=== PATIENT | female | born 1955 | race Caucasian/White ===

== ENCOUNTER 2020-04-06 20:25 | Outpatient (REF) | payer OTHER, SELFPAY | END 2020-04-06 20:26 | disposition home or self-care (01) | LOC: NCHCN 20:25 | PROVIDERS: PCP Nurse Practitioner Family; Visit Provider Nurse Practitioner Family | DX: E55.9 Vitamin D deficiency, unspecified (principal); Z00.00 Encounter for general adult medical examination without abnormal findings | CPT/HCPCS: 82306; 83735 ==

== ENCOUNTER 2020-06-12 15:12 | Outpatient (REF) | payer OTHER, SELFPAY ==
[2020-06-12 22:11] LABS: Anion Gap 9.6 mmol/L (3-11); BUN 14 mg/dL (7-18); CO2 28.4 mmol/L (21.0-32.0); Calcium 9.6 mg/dL (8.5-10.1); Chloride 107 mmol/L (98-107); Glucose 98 mg/dL (74-106); Potassium 4.4 mmol/L (3.5-5.1); Sodium 145 mmol/L (136-145)
== END 2020-06-12 15:13 | disposition home or self-care (01) ==
LOC: NCHCN 15:12
PROVIDERS: PCP Nurse Practitioner Family; Visit Provider Nurse Practitioner Family
DX: I10 Essential (primary) hypertension (principal)
CPT/HCPCS: 80048

== ENCOUNTER 2020-06-27 09:00 | Outpatient (REF) | payer OTHER, SELFPAY ==
[2020-06-27 13:27] LABS: Anion Gap 8.2 mmol/L (3-11); BUN 21 mg/dL (7-18); CO2 29.8 mmol/L (21.0-32.0); Calcium 9.2 mg/dL (8.5-10.1); Chloride 105 mmol/L (98-107); Glucose 61 mg/dL (74-106); Potassium 3.9 mmol/L (3.5-5.1); Sodium 143 mmol/L (136-145)
== END 2020-06-27 09:01 | disposition home or self-care (01) ==
LOC: NCHCN 09:00
PROVIDERS: PCP Nurse Practitioner Family; Visit Provider Nurse Practitioner Family
DX: I10 Essential (primary) hypertension (principal)
CPT/HCPCS: 80048

== ENCOUNTER 2021-03-27 11:19 | Outpatient (REF) | payer MEDICARE, SELFPAY ==
[2021-03-27 15:32] LABS: Anion Gap 6.5 mmol/L (3-11); BUN 13 mg/dL (7-18); CO2 29.5 mmol/L (21.0-32.0); CREATININE 0.8 mg/dL (0.55-1.02); Chloride 106 mmol/L (98-107); Glucose 103 mg/dL (74-106); Potassium 4.1 mmol/L (3.5-5.1); Sodium 142 mmol/L (136-145)
== END 2021-03-27 11:20 | disposition home or self-care (01) ==
LOC: NCHCN 11:19
PROVIDERS: PCP Nurse Practitioner Family; Visit Provider Nurse Practitioner Family
DX: I10 Essential (primary) hypertension (principal)
CPT/HCPCS: 80048

== ENCOUNTER 2021-09-04 15:25 | Outpatient (REF) | payer MEDICARE, SELFPAY ==
[2021-09-04 20:59] LABS: Bacteria Many HPF (Negative); C & S Indicated? Yes; Crystals Negative HPF (Negative); Epithelial Cells Few HPF (Negative); Mucus Negative (Negative)
[2021-09-04 21:20] LABS: ALT 23 U/L (14-59); AST 15 U/L (15-37); Albumin 3.9 g/dL (3.4-5.0); Alkaline Phosphatase 72 U/L (46-116); Anion Gap 10.6 mmol/L (3-11); BUN 15 mg/dL (7-18); Bilirubin, Total 0.5 mg/dL (0.2-1.0); CO2 24.4 mmol/L (21.0-32.0); Calcium 9.3 mg/dL (8.5-10.1); Calculated LDL 99 mg/dL (<100); Chloride 106 mmol/L (98-107); Cholesterol 165 mg/dL (<200); Estimated GFR 55.14 (mL/min/1.73m2); Glucose 103 mg/dL (74-106); HDL Cholesterol 52 mg/dL (40-60); Potassium 4.2 mmol/L (3.5-5.1); Sodium 141 mmol/L (136-145); Total Protein 6.9 g/dL (6.4-8.2); Triglyceride 70 mg/dL (<150)
[2021-09-04 22:10] LABS: Vitamin D 25 Total 51.1 ng/mL (30-100)
== END 2021-09-04 15:26 | disposition home or self-care (01) ==
LOC: NCHCN 15:25
PROVIDERS: PCP Nurse Practitioner Family; Visit Provider Nurse Practitioner Family
DX: I10 Essential (primary) hypertension (principal); E55.9 Vitamin D deficiency, unspecified; M85.80 Other specified disorders of bone density and structure, unspecified site; M54.9 Dorsalgia, unspecified
CPT/HCPCS: 80053; 80061; 82306; 87077; 81015; 87086; 87186

== ENCOUNTER 2021-10-01 15:33 | Outpatient (REF) | payer MEDICARE, SELFPAY ==
[2021-10-01 21:07] LABS: Anion Gap 9.4 mmol/L (3-11); BUN 15 mg/dL (7-18); CO2 25.6 mmol/L (21.0-32.0); Calcium 8.9 mg/dL (8.5-10.1); Chloride 104 mmol/L (98-107); Estimated GFR 55.14 (mL/min/1.73m2); Glucose 105 mg/dL (74-106); Potassium 4.3 mmol/L (3.5-5.1); Sodium 139 mmol/L (136-145)
[2021-10-01 21:15] LABS: Hemoglobin A1C 5.3 % (<5.7)
== END 2021-10-01 15:34 | disposition home or self-care (01) ==
LOC: NCHCN 15:33
PROVIDERS: PCP Nurse Practitioner Family; Visit Provider Nurse Practitioner Family
DX: R30.0 Dysuria (principal); I10 Essential (primary) hypertension; Z00.00 Encounter for general adult medical examination without abnormal findings; E66.9 Obesity, unspecified; Z13.1 Encounter for screening for diabetes mellitus
CPT/HCPCS: 80048; 83036; 87086

== ENCOUNTER 2021-10-18 16:02 | Outpatient (REF) | payer MEDICARE, SELFPAY ==
[2021-10-18 16:36] LABS: BUN 13 mg/dL (7-18); CREATININE 0.9 mg/dL (0.55-1.02); Calcium 9.1 mg/dL (8.5-10.1); Chloride 104 mmol/L (98-107); Estimated GFR 69.64 (mL/min/1.73m2); Glucose 102 mg/dL (74-106); Potassium 3.9 mmol/L (3.5-5.1); Sodium 141 mmol/L (136-145)
== END 2021-10-18 16:03 | disposition home or self-care (01) ==
LOC: NCHCN 16:02
PROVIDERS: PCP Nurse Practitioner Family; Visit Provider Nurse Practitioner Family
DX: I10 Essential (primary) hypertension (principal)
CPT/HCPCS: 80048

== ENCOUNTER 2021-11-23 16:36 | Outpatient (REF) | payer MEDICARE, SELFPAY ==
[2021-11-23 17:49] LABS: Anion Gap 9.2 mmol/L (3-11); BUN 17 mg/dL (7-18); CO2 27.8 mmol/L (21.0-32.0); CREATININE 0.9 mg/dL (0.55-1.02); Calcium 9.6 mg/dL (8.5-10.1); Chloride 102 mmol/L (98-107); Estimated GFR 69.64 (mL/min/1.73m2); Glucose 94 mg/dL (74-106); Potassium 3.9 mmol/L (3.5-5.1); Sodium 139 mmol/L (136-145)
== END 2021-11-23 16:37 | disposition home or self-care (01) ==
LOC: NCHCN 16:36
PROVIDERS: PCP Nurse Practitioner Family; Visit Provider Nurse Practitioner Family
DX: I10 Essential (primary) hypertension (principal)
CPT/HCPCS: 80048

== ENCOUNTER 2022-01-24 16:30 | Outpatient (REF) | payer MEDICARE, SELFPAY ==
--- NOTE | 2022-01-24 16:00 | PAPFT_PTH ---
PATIENT: Inna Cordero LOC: [facility]#:[id number] AGE/SX: 66/F ROOM: RE01/24/[address]: Dawna Eugene : 1955 BED: DIS: 01/24/2022 SPEC #: [id number] RECD: 01/25/22 12:50 STATUS: KELLE REQ #: [id number] BERTRAM: 01/24/22 16:[address]: Dawna Eugene DEPT: [facility] Cytology RECD BY: Keturah Camp ENTERED: 01/25/22 12:50 SP TYPE: PAPFT OTHR DR: Marisol Mcdermott Tissues: 1 - CX/ENDOCX FOR PAP SMEARS Procedures: PAP THIN PREP/[facility] Screening HPV DNA PROBE Comments: [id number]
== END 2022-01-24 16:31 | disposition home or self-care (01) ==
LOC: NCHCN 16:30
PROVIDERS: PCP Nurse Practitioner Family; Visit Provider Nurse Practitioner Family
DX: Z12.4 Encounter for screening for malignant neoplasm of cervix (principal); Z11.51 Encounter for screening for human papillomavirus (HPV); Z01.419 Encounter for gynecological examination (general) (routine) without abnormal findings
CPT/HCPCS: 88142; 87624

== ENCOUNTER 2022-03-25 15:19 | Outpatient (REF) | payer MEDICARE, SELFPAY ==
[2022-03-25 21:28] LABS: Abs Immature Grans 0.01 10^3/uL (0.0-0.06); Absolute Basophil Count 0.04 10^3/uL (0.0-0.2); Absolute Eosinophil Count 0.07 10^3/uL (0.0-0.7); Absolute Lymphocyte Count 2.32 10^3/uL (1.2-3.4); Basophils % 0.7; Eosinophils % 1.2; HCT 43.7 % (36.0-46.0); HGB 15.8 g/dL (11.2-15.7); Immature Grans % 0.2; Lymphocytes % 39.1; MCH 32.7 pg (27.0-33.0); MCHC 36.2 % (32.0-36.0); MCV 91 fL (80-95); Monocytes % 6.7; Neutrophils % 52.1; Platelet Count 343 10^3/uL (130-400); RBC 4.83 10^6/uL (3.93-5.22); RDW 13.4 % (11.7-14.6); RDW-SD 40.7 fL; WBC 5.94 10^3/uL (4.4-10.8)
[2022-03-25 21:39] LABS: ALT 18 U/L (14-59); AST 19 U/L (15-37); Albumin 3.8 g/dL (3.4-5.0); Alkaline Phosphatase 81 U/L (46-116); Anion Gap 5.9 mmol/L (3-11); BUN 16 mg/dL (7-18); Bilirubin, Total 0.5 mg/dL (0.2-1.0); CO2 31.1 mmol/L (21.0-32.0); CREATININE 0.9 mg/dL (0.55-1.02); Calcium 9.5 mg/dL (8.5-10.1); Chloride 101 mmol/L (98-107); Estimated GFR 69.64 (mL/min/1.73m2); Glucose 108 mg/dL (74-106); Lipase 61 U/L (16-77); Potassium 3.8 mmol/L (3.5-5.1); Sodium 138 mmol/L (136-145); Total Protein 7.1 g/dL (6.4-8.2)
== END 2022-03-25 15:20 | disposition home or self-care (01) ==
LOC: NCHCN 15:19
PROVIDERS: PCP Nurse Practitioner Family; Visit Provider Nurse Practitioner Family
DX: R11.0 Nausea (principal); I10 Essential (primary) hypertension
CPT/HCPCS: 80053; 83690; 85025

== ENCOUNTER 2022-04-04 12:42 | Outpatient (REF) | payer MEDICARE, SELFPAY ==
[2022-04-04 14:23] LABS: Anion Gap 7.7 mmol/L (3-11); BUN 21 mg/dL (7-18); CO2 30.3 mmol/L (21.0-32.0); CREATININE 0.9 mg/dL (0.55-1.02); Calcium 9.3 mg/dL (8.5-10.1); Chloride 102 mmol/L (98-107); Estimated GFR 69.64 (mL/min/1.73m2); Glucose 110 mg/dL (74-106); Potassium 3.4 mmol/L (3.5-5.1); Sodium 140 mmol/L (136-145)
== END 2022-04-04 12:43 | disposition home or self-care (01) ==
LOC: NCHCN 12:42
PROVIDERS: PCP Nurse Practitioner Family; Visit Provider Nurse Practitioner Family
DX: I10 Essential (primary) hypertension (principal)
CPT/HCPCS: 80048

== ENCOUNTER 2022-04-18 20:50 | Outpatient (REF) | payer MEDICARE, SELFPAY ==
[2022-04-18 21:16] LABS: Anion Gap 9.9 mmol/L (3-11); BUN 17 mg/dL (7-18); CO2 30.1 mmol/L (21.0-32.0); Calcium 9.4 mg/dL (8.5-10.1); Chloride 102 mmol/L (98-107); Estimated GFR 61.36 (mL/min/1.73m2); Glucose 102 mg/dL (74-106); Potassium 3.4 mmol/L (3.5-5.1); Sodium 142 mmol/L (136-145)
== END 2022-04-18 20:51 | disposition home or self-care (01) ==
LOC: NCHCN 20:50
PROVIDERS: PCP Nurse Practitioner Family; Visit Provider Registered Nurse
DX: E87.6 Hypokalemia (principal)
CPT/HCPCS: 80048

== ENCOUNTER 2022-05-10 14:54 | Outpatient (REF) | payer MEDICARE, SELFPAY ==
[2022-05-10 16:45] LABS: Potassium 3.5 mmol/L (3.5-5.1)
== END 2022-05-10 14:55 | disposition home or self-care (01) ==
LOC: NCHCN 14:54
PROVIDERS: PCP Nurse Practitioner Family; Visit Provider Registered Nurse
DX: E87.6 Hypokalemia (principal)
CPT/HCPCS: 84132

== ENCOUNTER 2022-09-18 14:20 | Outpatient (REF) | payer MEDICARE, SELFPAY ==
[2022-09-18 21:11] LABS: Calculated LDL 119 mg/dL (<100); Cholesterol 185 mg/dL (<200); HDL Cholesterol 52 mg/dL (40-60); TSH (W/Ref FT4) 1.09 uIU/mL (0.36-3.74); Triglyceride 70 mg/dL (<150)
[2022-09-18 22:18] LABS: Anion Gap 10.4 mmol/L (3-11); BUN 16 mg/dL (7-18); CO2 28.6 mmol/L (21.0-32.0); CREATININE 1.1 mg/dL (0.55-1.02); Calcium 9.5 mg/dL (8.5-10.1); Chloride 100 mmol/L (98-107); Estimated GFR 54.39 (mL/min/1.73m2); Glucose 98 mg/dL (74-106); Potassium 3.5 mmol/L (3.5-5.1); Sodium 139 mmol/L (136-145)
== END 2022-09-18 14:21 | disposition home or self-care (01) ==
LOC: NCHCN 14:20
PROVIDERS: PCP Nurse Practitioner Family; Visit Provider Registered Nurse
DX: Z77.123 Contact with and (suspected) exposure to radon and other naturally occurring radiation (principal); E87.6 Hypokalemia; Z00.00 Encounter for general adult medical examination without abnormal findings
CPT/HCPCS: 80048; 80053; 80061; 84443

== ENCOUNTER 2023-01-21 15:34 | Outpatient (REF) | payer MEDICARE, SELFPAY ==
[2023-01-21 15:40] LABS: Abs Immature Grans 0.01 10^3/uL (0.0-0.06); Absolute Basophil Count 0.03 10^3/uL (0.0-0.2); Absolute Eosinophil Count 0.13 10^3/uL (0.0-0.7); Absolute Lymphocyte Count 2.41 10^3/uL (1.2-3.4); Absolute Monocyte Count 0.51 10^3/uL (0.1-0.8); Absolute Neutrophil Count 3.82 10^3/uL (1.2-6.7); Basophils % 0.4; Eosinophils % 1.9; HCT 40.8 % (36.0-46.0); HGB 14.9 g/dL (11.2-15.7); Immature Grans % 0.1; Lymphocytes % 34.9; MCH 33.2 pg (27.0-33.0); MCHC 36.5 % (32.0-36.0); MCV 91 fL (80-95); MPV 10.2 fL (8.0-11.0); Monocytes % 7.4; Neutrophils % 55.3; Platelet Count 349 10^3/uL (130-400); RBC 4.49 10^6/uL (3.93-5.22); RDW 13.8 % (11.7-14.6); RDW-SD 42.4 fL; WBC 6.91 10^3/uL (4.4-10.8)
[2023-01-21 16:02] LABS: ALT 21 U/L (14-59); AST 19 U/L (15-37); Albumin 3.5 g/dL (3.4-5.0); Alkaline Phosphatase 73 U/L (46-116); Anion Gap 5.9 mmol/L (3-11); BUN 17 mg/dL (7-18); Bilirubin, Total 0.6 mg/dL (0.2-1.0); CO2 30.1 mmol/L (21.0-32.0); Calcium 9.7 mg/dL (8.5-10.1); Chloride 102 mmol/L (98-107); Estimated GFR 60.98 (mL/min/1.73m2); Glucose 100 mg/dL (74-106); Potassium 3.6 mmol/L (3.5-5.1); Sodium 138 mmol/L (136-145); TSH (W/Ref FT4) 1.53 uIU/mL (0.36-3.74); Total Protein 6.9 g/dL (6.4-8.2)
== END 2023-01-21 15:35 | disposition home or self-care (01) ==
LOC: NCHCN 15:34
PROVIDERS: PCP Nurse Practitioner Family; Visit Provider Family Medicine
DX: I10 Essential (primary) hypertension (principal); E78.5 Hyperlipidemia, unspecified; E66.9 Obesity, unspecified
CPT/HCPCS: 80053; 84443; 85025

== ENCOUNTER 2024-01-23 08:21 | Outpatient (REF) | payer MEDICARE, SELFPAY ==
[2024-01-23 14:38] LABS: HCT 47.3 % (36.0-46.0); MCH 32.6 pg (27.0-33.0); MCHC 35.9 % (32.0-36.0); MCV 91 fL (80-95); MPV 9.5 fL (8.0-11.0); Platelet Count 380 10^3/uL (130-400); RBC 5.22 10^6/uL (3.93-5.22); RDW 12.6 % (11.7-14.6); RDW-SD 39.5 fL; WBC 7.71 10^3/uL (4.4-10.8)
[2024-01-23 14:51] LABS: ALT 19 U/L (14-59); AST 22 U/L (15-37); Albumin 3.9 g/dL (3.4-5.0); Alkaline Phosphatase 96 U/L (46-116); Anion Gap 8.8 mmol/L (3-11); BUN 19 mg/dL (7-18); Bilirubin, Total 0.59 mg/dL (0.2-1.0); CO2 30.2 mmol/L (21.0-32.0); CREATININE 1.2 mg/dL (0.55-1.02); Calcium 9.4 mg/dL (8.5-10.1); Calculated LDL 118 mg/dL (<100); Chloride 105 mmol/L (98-107); Cholesterol 193 mg/dL (<200); Glucose 104 mg/dL (74-106); HDL Cholesterol 53 mg/dL (40-60); Potassium 3.2 mmol/L (3.5-5.1); Sodium 144 mmol/L (136-145); Total Protein 7.6 g/dL (6.4-8.2); Triglyceride 113 mg/dL (<150)
== END 2024-01-23 08:22 | disposition home or self-care (01) ==
LOC: NCHCN 08:21
PROVIDERS: PCP Nurse Practitioner Family; Visit Provider Nurse Practitioner Family
DX: I10 Essential (primary) hypertension (principal); E78.5 Hyperlipidemia, unspecified
CPT/HCPCS: 80053; 80061; 85027

== ENCOUNTER 2024-03-03 13:25 | Outpatient (REF) | payer MEDICARE, SELFPAY ==
[2024-03-03 15:45] LABS: Abs Immature Grans 0.03 10^3/uL (0.0-0.06); Absolute Basophil Count 0.06 10^3/uL (0.0-0.2); Absolute Eosinophil Count 0.15 10^3/uL (0.0-0.7); Absolute Monocyte Count 0.54 10^3/uL (0.1-0.8); Absolute Neutrophil Count 3.46 10^3/uL (1.2-6.7); Basophils % 0.8 %; HCT 49.4 % (36.0-46.0); HGB 17.2 g/dL (11.2-15.7); Immature Grans % 0.4 %; Lymphocytes % 44.5 %; MCH 32.2 pg (27.0-33.0); MCHC 34.8 % (32.0-36.0); MCV 93 fL (80-95); MPV 9.8 fL (8.0-11.0); Monocytes % 7.1 %; Neutrophils % 45.2 %; Platelet Count 412 10^3/uL (130-400); RBC 5.34 10^6/uL (3.93-5.22); RDW 13.6 % (11.7-14.6); RDW-SD 42.6 fL; WBC 7.64 10^3/uL (4.4-10.8)
[2024-03-03 15:56] LABS: Anion Gap 4.2 mmol/L (3-11); BUN 22 mg/dL (7-18); CO2 32.8 mmol/L (21.0-32.0); Calcium 9.1 mg/dL (8.5-10.1); Chloride 106 mmol/L (98-107); Estimated GFR 60.61 (mL/min/1.73m2); Glucose 85 mg/dL (74-106); Potassium 4.3 mmol/L (3.5-5.1); Sodium 143 mmol/L (136-145)
[2024-03-03 23:45] LABS: Hepatitis C Ab w Rflx HCV PCR Negative (Negative)
== END 2024-03-03 13:26 | disposition home or self-care (01) ==
LOC: NCHCN 13:25
PROVIDERS: PCP Nurse Practitioner Family; Visit Provider Nurse Practitioner Family
DX: I10 Essential (primary) hypertension (principal); Z11.59 Encounter for screening for other viral diseases
CPT/HCPCS: 80048; 86803; 85025

== ENCOUNTER 2024-03-11 14:26 | Outpatient (REF) | payer MEDICARE, SELFPAY ==
[2024-03-11 22:35] LABS: Abs Immature Grans 0.02 10^3/uL (0.0-0.06); Absolute Basophil Count 0.07 10^3/uL (0.0-0.2); Absolute Eosinophil Count 0.12 10^3/uL (0.0-0.7); Absolute Lymphocyte Count 2.92 10^3/uL (1.2-3.4); Absolute Monocyte Count 0.53 10^3/uL (0.1-0.8); Absolute Neutrophil Count 3.61 10^3/uL (1.2-6.7); Eosinophils % 1.7 %; HCT 44.6 % (36.0-46.0); HGB 15.7 g/dL (11.2-15.7); Immature Grans % 0.3 %; Lymphocytes % 40.2 %; MCH 32.7 pg (27.0-33.0); MCHC 35.2 % (32.0-36.0); MCV 93 fL (80-95); MPV 9.7 fL (8.0-11.0); Monocytes % 7.3 %; Neutrophils % 49.5 %; Platelet Count 385 10^3/uL (130-400); RDW 13.5 % (11.7-14.6); RDW-SD 42.3 fL; WBC 7.27 10^3/uL (4.4-10.8)
[2024-03-15 14:13] LABS: Erythropoietin 7.3 mIU/mL (2.6 - 18.5)
== END 2024-03-11 14:27 | disposition home or self-care (01) ==
LOC: NCHCN 14:26
PROVIDERS: PCP Nurse Practitioner Family; Visit Provider Nurse Practitioner Family
DX: D75.1 Secondary polycythemia (principal)
CPT/HCPCS: 82668; 85025

== ENCOUNTER 2025-01-04 14:14 | Outpatient (REF) | payer MEDICARE, SELFPAY ==
[2025-01-04 21:26] LABS: ALT 19 U/L (10-49); AST 23 U/L (<34); Albumin 4.4 g/dL (3.2-5.0); Alkaline Phosphatase 87 U/L (46-116); Anion Gap 5 mmol/L (3-11); BUN 15 mg/dL (9-23); Bilirubin, Total 0.80 mg/dL (0.2-1.2); CO2 27.0 mmol/L (20.0-31.0); Calcium 9.9 mg/dL (8.3-10.6); Chloride 108 mmol/L (98-107); Cholesterol 181 mg/dL (<200); Glucose 99 mg/dL (74-106); HDL Cholesterol 53 mg/dL (>40); Potassium 3.6 mmol/L (3.5-5.1); Sodium 140 mmol/L (136-145); Total Protein 7.1 g/dL (5.7-8.2)
[2025-01-04 21:50] LABS: HCT 45.4 % (36.0-46.0); HGB 15.9 g/dL (11.2-15.7); MCH 30.8 pg (27.0-33.0); MCHC 35.0 % (32.0-36.0); MCV 88 fL (80-95); MPV 9.7 fL (8.0-11.0); Platelet Count 445 10^3/uL (130-400); RBC 5.17 10^6/uL (3.93-5.22); RDW 12.7 % (11.7-14.6); RDW-SD 40.1 fL; WBC 6.63 10^3/uL (4.4-10.8)
[2025-01-04 22:12] LABS: Hemoglobin A1C 5.0 % (<5.7)
== END 2025-01-04 14:15 | disposition home or self-care (01) ==
LOC: NCHCN 14:14
PROVIDERS: PCP Nurse Practitioner Family; Visit Provider Nurse Practitioner Family
DX: Z83.3 Family history of diabetes mellitus (principal); E78.5 Hyperlipidemia, unspecified; I10 Essential (primary) hypertension
CPT/HCPCS: 80053; 80061; 85027; 83036